=== PATIENT | female | born 1935 | race Caucasian/White ===

== ENCOUNTER 2023-01-25 11:38 | Inpatient (IN) | payer OTHER ==
[~2023-01-25] VITALS: Ht 157.5 cm; Wt 69.4 kg
[2023-01-25 11:56] VITALS: BP_SYST 180
--- NOTE | 2023-01-25 11:59 | NUR ---
Placed in room 5 . Placed on environmental monitoring technician, blood pressure machine and pulse oximeter. To gown for exam. Side rails up. Report given to HEAVENLY MCCLENDON
[2023-01-25] MEDS ORDERED: NACL 0.9% 500 ML IV ONE (12:00)
[2023-01-25] MEDS ORDERED: LABETALOL HCL 20 MG/4 ML CARTRIDGE IVP ONE ×2 (12:00→15:15)
--- NOTE | 2023-01-25 12:12 | NUR ---
PATIENT BIBA FROM HOME WITH AMS, PLACE IN ROOM 5 AWAITING FOR EDP FOR INITIAL ASSESSMENT.
--- NOTE | 2023-01-25 12:30 | NUR ---
PATIENT ASSISTED TO BEDPAN.
[2023-01-25 12:32] LABS: BASOPHILS % (AUTO) 0.3 % (0.0-2.0); EOSINOPHILS % (AUTO) 0.1 % (0.0-4.0); HEMATOCRIT 42.2 % (36-48); HEMOGLOBIN 13.8 g/dL (12.0-16.0); LYMPHOCYTES # (AUTO) 0.7 K/uL (1.0-5.5); LYMPHOCYTES % (AUTO) 6.7 % (20.5-51.5); MEAN CORPUSCULAR HEMOGLOBIN 30 pg (27-31); MEAN CORPUSCULAR HGB CONC 33 % (32-36); MEAN CORPUSCULAR VOLUME 92 fL (79.0-98.0); MONOCYTES # (AUTO) 0.5 K/uL (0.0-1.0); MONOCYTES % (AUTO) 4.8 % (1.7-9.3); NEUTROPHILS # (AUTO) 9.7 K/uL (1.8-7.7); NEUTROPHILS % (AUTO) 88.1 % (40.0-70.0); PLATELET COUNT (AUTO) 227 K/uL (130-430); RED BLOOD CELL COUNT(AUTO) 4.57 MIL/uL (4.2-6.2); RED CELL DISTRIBUTION WIDTH 13.5 % (9.0-15.0)
[2023-01-25 12:40] LABS: ANION GAP 15 (5-15); CHLORIDE 98 mmol/L (98-107); CREATININE 1.22 mg/dL (0.55-1.30); GLUCOSE 197 mg/dL (70-99); UREA NITROGEN, BLOOD 22 mg/dL (8-21)
[2023-01-25 12:45] LABS: ALANINE AMINOTRANSFERASE 31 U/L (12-78); ALBUMIN 3.8 g/dL (3.4-4.8); ASPARTATE AMINOTRANSFERASE 33 U/L (10-37); TOTAL BILIRUBIN 0.3 mg/dL (0.0-1.0)
--- NOTE | 2023-01-25 13:13 | NUR ---
PATIENT TAKEN TO RADIOLOGY.
[2023-01-25 13:59] LABS: BILIRUBIN,URINE NEGATIVE (NEGATIVE); BLOOD, URINE 2+ (NEGATIVE); CLARITY/URINE CLEAR (CLEAR); COLOR,URINE YELLOW (YELLOW); GLUCOSE,URINE 2+ (NEGATIVE); KETONES,URINE NEGATIVE (NEGATIVE); LEUKOCYTE ESTERASE ,URINE NEGATIVE (NEGATIVE); NITRITE, URINE NEGATIVE (NEGATIVE); PROTEIN URINE 3+ (NEGATIVE); UROBILINOGEN,URINE 0.2 (0.2-1.0)
[2023-01-25 14:17] LABS: BACTERIA,URINE RARE /HPF (None Seen); MUCUS,URINE 1+ /LPF (None Seen); RBC,URINE 0-3 /HPF (0-3); WBC,URINE 0-3 /HPF (0-3)
[2023-01-25] MEDS ORDERED: NACL 0.9% 2,000 ML IV ONE (15:15)
[2023-01-25] MEDS ORDERED: cefTRIAXone 1 GM IVPB PREMIX 50 ML IV ONE (15:15)
--- NOTE | 2023-01-25 15:17 | NUR ---
patient remains in bed confuse, on cardiac monitor technician, son at bedside, edp made aware of patient list of meds.
[2023-01-25] MEDS ORDERED: ONDANSETRON HCL 4 MG/2 ML VIAL ONE (16:26)
[2023-01-25] MEDS ORDERED: ONDANSETRON HCL 4 MG/2 ML VIAL IVP ONE (16:45)
--- NOTE | 2023-01-25 16:45 | NUR ---
PATIENT ASSISTED IN BED, SHEET CHANGE.
[2023-01-25] MEDS ORDERED: INSULIN LISPRO SLIDING SCALE 100 UNITS/ML, 3 ML VIAL (humaLOG) SUBCUT PRN (17:30)
[2023-01-25] MEDS ORDERED: VANCOMYCIN HCL 750 MG in NS 250 ML IV ONE (18:00)
--- NOTE | 2023-01-25 19:01 | NUR ---
Admit bed requested Patient will be admitted to care of . Admitted to unit. Diagnosis Inpatient (Yes or No) Observation (Yes or No) Orientation concerns or request close to nursing station (Yes or No) Covid Status On vent or bipap Isolation requirements Needs a sitter From Home (Yes or if No enter name of facility) Requires Dialysis (Yes or No) Med Rec Completed (Yes of No)
--- NOTE | 2023-01-25 19:45 | NUR ---
Attempted to insert F/C. Pt became agitated and combative. Pt's son requested we try again later.
[2023-01-25] MEDS ORDERED: ASPI-1155 PO (20:02)
[2023-01-25] MEDS ORDERED: SIMV-46 PO (20:02)
[2023-01-25] MEDS ORDERED: ATEN50TA PO (20:02)
[2023-01-25] MEDS ORDERED: CLON-433 PO (20:02)
[2023-01-25] MEDS ORDERED: LISI40TA13 PO (20:03)
--- NOTE | 2023-01-25 20:03 | NUR ---
Medication reconciliation completed with information provided by PATIENT'S SON, VALENTIN. Any prior medication reconciliation on file was reviewed and corrected.
--- NOTE | 2023-01-25 20:50 | NUR ---
Admit bed requested Patient will be admitted to care of . Admitted to TELE unit. Diagnosis SEPSIS Inpatient (Yes or No) Y Observation (Yes or No) N Orientation concerns or request close to nursing station (Yes or No) Y Covid Status NEG On vent or bipap N Isolation requirements N Needs a sitter N From Home (Yes or if No enter name of facility) Y Requires Dialysis (Yes or No) N Med Rec Completed (Yes of No) Y
--- NOTE | 2023-01-25 21:58 | NUR ---
Bedside report given to receiving RN. Pt transported via gurney with belongings.
--- NOTE | 2023-01-25 22:00 | NUR ---
ADMISSION NOTE Received patient from ER via gurney. Patient admitted with diagnosis of SEPSIS. Patient is awake, alert, oriented X 0. Patient oriented to hospital room, call light, toileting, pain management and safety-teach back done. Patient informed that their room number is 120A. Personal belongings checked and Belongings List documented. Call light within reach.
[2023-01-25 22:30] VITALS: BP_SYST 169
[2023-01-26] MEDS ORDERED: hydrALAZINE HCL 20 MG/ML VIAL ONE (03:01)
[2023-01-26] MEDS ORDERED: LORazepam 2 MG/ML VIAL IVP PRN (03:15)
[2023-01-26] MEDS ORDERED: ONDANSETRON HCL 4 MG/2 ML VIAL IVP PRN (03:15)
--- NOTE | 2023-01-26 03:23 | NUR ---
DR TAVERA ON-CALL FOR DR TOVAR. GAVE ORDERS FOR ATIVAN PRN, ZOFRAN PRN, HYDRALAZINE PRN, CARDIAC TYRESE , KCL, ACCUCHECK ACHS, DC SCHULER ORDER. SEE ORDER SUMMARY. WILL CONTINUE TO MONITOR.
[2023-01-26] MEDS: hydrALAZINE HCL 20 MG/ML VIAL IVP PRN ×2 (03:32→09:42)
[2023-01-26 04:12] LABS: BASOPHILS % (AUTO) 0.2 % (0.0-2.0); LYMPHOCYTES # (AUTO) 0.8 K/uL (1.0-5.5); LYMPHOCYTES % (AUTO) 7.5 % (20.5-51.5); MEAN CORPUSCULAR HEMOGLOBIN 31 pg (27-31); MEAN CORPUSCULAR HGB CONC 33 % (32-36); MEAN CORPUSCULAR VOLUME 92 fL (79.0-98.0); MONOCYTES # (AUTO) 0.5 K/uL (0.0-1.0); MONOCYTES % (AUTO) 4.8 % (1.7-9.3); NEUTROPHILS # (AUTO) 9.2 K/uL (1.8-7.7); NEUTROPHILS % (AUTO) 87.5 % (40.0-70.0); PLATELET COUNT (AUTO) 188 K/uL (130-430); RED BLOOD CELL COUNT(AUTO) 3.93 MIL/uL (4.2-6.2); WHITE BLOOD COUNT (AUTO) 10.5 K/uL (4.8-10.8)
[2023-01-26 04:41] LABS: ANION GAP 12 (5-15); CHLORIDE 98 mmol/L (98-107); CREATININE 1.25 mg/dL (0.55-1.30); GLUCOSE 170 mg/dL (70-99); UREA NITROGEN, BLOOD 21 mg/dL (8-21)
[2023-01-26] MEDS: POTASSIUM CHLORIDE 20 MEQ TAB.PRT.SR PO ONE (06:10)
[2023-01-26 08:00] VITALS: BP_SYST 185
[2023-01-26] MEDS ORDERED: KCL 40 mEq in 100 mL (PREMIX) 100 ML IV ONE (10:00)
[2023-01-26] MEDS: POTASSIUM CHLORIDE 20 mEq in 100 mL (PREMIX) 100 ML x 2 doses IV SCH ×2 (10:36→13:37)
[2023-01-26 12:08] VITALS: BP_SYST 138
--- NOTE | 2023-01-26 13:53 | NUR ---
CONSULTATION PAGED/CALLED Reason for Consultation: [] [place] Person Who was Notified: [] DWAYNE Consulting Physician: [] DR TAVERA N Amphibian Crewmember Specialty: [] NEPHRO Ordering Physician: [] DR Luke TOVAR Addendum: 01/26/23 at 1354 by Ayana Encarnacion MT/ WRONG PATIENT
--- NOTE | 2023-01-26 13:57 | NUR ---
CONSULTATION PAGED/CALLED Reason for Consultation: [] INFECTION Person Who was Notified: [] AMANDA Consulting Physician: [] DR ARIAS Employee Wellness/Fitness Coordinator Specialty: [] ID Ordering Physician: [] DR TOVAR
[2023-01-26] MEDS: cefTRIAXone 1 GM in D5W 50 ML IV SCH (16:17)
[2023-01-26 16:34] VITALS: BP_SYST 153
[2023-01-26] MEDS: VANCOMYCIN HCL 750 MG in NS 250 ML IV SCH (17:04)
--- NOTE | 2023-01-26 19:48 | NUR ---
Opening note Received SBAR report from HAKAN Tolbert and we visit the patient at bedside. No distress noted and she is on room air. V/S taken and stable. Patient denies pain, does not need to use bed morton, nor is she soiled. IV to RFA is saline locked and patent. Bed is locked in lowest position, side rails up 3x and bed alarm is on.
[2023-01-26 20:00] VITALS: BP_SYST 136
--- NOTE | 2023-01-26 21:20 | NUR ---
water, reposition Patient was offered water and she took a sip, she encouraged and assisted to reposition
[2023-01-27] VITALS: BP_SYST 173
[2023-01-27] MEDS: hydrALAZINE HCL 20 MG/ML VIAL IVP PRN ×3 (00:10→14:37)
--- NOTE | 2023-01-27 00:10 | NUR ---
Apresoline, patient care Administered Apresoline as ordered for SBP of (173 /52, HR 70). Patient was incontinent of bowel and she was provided w/pericare, new pad/linen and assisted to reposition.
--- NOTE | 2023-01-27 04:30 | NUR ---
rounds Patient is resting w/eyes closed, momentarily awakened. She does not have any needs and reports she is good. wctm
[2023-01-27 05:00] VITALS: BP_SYST 163
[2023-01-27 05:15] LABS: BASOPHILS % (AUTO) 0.4 % (0.0-2.0); EOSINOPHILS % (AUTO) 0.4 % (0.0-4.0); HEMATOCRIT 32.1 % (36-48); HEMOGLOBIN 10.9 g/dL (12.0-16.0); LYMPHOCYTES # (AUTO) 1.6 K/uL (1.0-5.5); LYMPHOCYTES % (AUTO) 24.9 % (20.5-51.5); MEAN CORPUSCULAR HEMOGLOBIN 31 pg (27-31); MEAN CORPUSCULAR HGB CONC 34 % (32-36); MEAN CORPUSCULAR VOLUME 91 fL (79.0-98.0); MONOCYTES % (AUTO) 14.8 % (1.7-9.3); NEUTROPHILS # (AUTO) 3.9 K/uL (1.8-7.7); NEUTROPHILS % (AUTO) 59.5 % (40.0-70.0); PLATELET COUNT (AUTO) 149 K/uL (130-430); RED BLOOD CELL COUNT(AUTO) 3.52 MIL/uL (4.2-6.2); RED CELL DISTRIBUTION WIDTH 14.1 % (9.0-15.0); WHITE BLOOD COUNT (AUTO) 6.6 K/uL (4.8-10.8)
[2023-01-27 05:44] LABS: ANION GAP 9 (5-15); CALCIUM 8.8 mg/dL (8.4-11.0); CHLORIDE 105 mmol/L (98-107); CREATININE 1.19 mg/dL (0.55-1.30); GLUCOSE 79 mg/dL (70-99); UREA NITROGEN, BLOOD 31 mg/dL (8-21)
[2023-01-27 08:00] VITALS: BP_SYST 175
[2023-01-27 14:31] VITALS: BP_SYST 162
--- NOTE | 2023-01-27 15:23 | NUR ---
PHYSICAL THERAPY CO-SIGN The Physical Therapy Progress Notes documented by Resident Assistant have been reviewed. Reviewed/Co-Signed by: Doyle Preston Documentation Done by:YASMINE WOLFF Addendum: 01/27/23 at 1524 by Doyle Preston PT Amended: Links added.
[2023-01-27] MEDS: cefTRIAXone 1 GM in D5W 50 ML IV SCH (16:40)
[2023-01-27] MEDS: VANCOMYCIN HCL 750 MG in NS 250 ML IV SCH (16:41)
[2023-01-27] MEDS ORDERED: lisinopriL 20 MG TABLET PO ONE (17:00)
--- NOTE | 2023-01-27 19:25 | NUR ---
OPENING NOTE PT IS SITTING IN BED WITH SON BEDSIDE. NO APPARENT DISTRESS NOTED AT THIS TIME. BED IS IN LOWEST POSITION WITH FALL AND SAFETY PRECAUTIONS IN PLACE. CALL LIGHT WITHIN REACH, PT VERBALIZED HOW TO USE IT. ALL NEEDS MET AT THIS TIME.
[2023-01-27 20:00] VITALS: BP_SYST 175
[2023-01-27] MEDS: cloNIDine HCL 0.1 MG TABLET PO SCH (20:50)
[2023-01-28] VITALS: BP_SYST 152
[2023-01-28 05:41] LABS: BASOPHILS % (AUTO) 0.8 % (0.0-2.0); EOSINOPHILS # (AUTO) 0.1 K/uL (0.0-0.4); HEMATOCRIT 32.6 % (36-48); HEMOGLOBIN 10.9 g/dL (12.0-16.0); LYMPHOCYTES # (AUTO) 0.7 K/uL (1.0-5.5); LYMPHOCYTES % (AUTO) 17.6 % (20.5-51.5); MEAN CORPUSCULAR HEMOGLOBIN 31 pg (27-31); MEAN CORPUSCULAR HGB CONC 34 % (32-36); MEAN CORPUSCULAR VOLUME 92 fL (79.0-98.0); MONOCYTES # (AUTO) 0.6 K/uL (0.0-1.0); NEUTROPHILS # (AUTO) 2.7 K/uL (1.8-7.7); NEUTROPHILS % (AUTO) 65.6 % (40.0-70.0); PLATELET COUNT (AUTO) 132 K/uL (130-430); RED BLOOD CELL COUNT(AUTO) 3.56 MIL/uL (4.2-6.2); RED CELL DISTRIBUTION WIDTH 13.9 % (9.0-15.0); WHITE BLOOD COUNT (AUTO) 4.1 K/uL (4.8-10.8)
[2023-01-28 06:35] LABS: ANION GAP 9 (5-15); CALCIUM 8.3 mg/dL (8.4-11.0); CHLORIDE 105 mmol/L (98-107); CREATININE 1.08 mg/dL (0.55-1.30); GLUCOSE 103 mg/dL (70-99); UREA NITROGEN, BLOOD 27 mg/dL (8-21)
--- NOTE | 2023-01-28 07:00 | NUR ---
CLOSING NOTE PT IS LYING IN BED WITH EYES OPEN. NO APPARENT DISTRESS NOTED. BED IN LOWEST POSITION WITH FALL AND SAFETY PRECAUTIONS IN PLACE. ASSISTED PT TO RESTROOM. CALL LIGHT WITHIN REACH.
[2023-01-28] MEDS: cloNIDine HCL 0.1 MG TABLET PO SCH (08:46)
[2023-01-28] MEDS ORDERED: ATENOLOL 25 MG TABLET(TENORMIN) PO SCH (09:00)
[2023-01-28] MEDS ORDERED: lisinopriL 20 MG TABLET PO SCH (09:00)
[2023-01-28 11:31] VITALS: BP_SYST 117
[2023-01-28] MEDS ORDERED: NIFEdipine 30 MG TAB.ER.24 PO ONE (12:30)
[2023-01-28] MEDS ORDERED: cloNIDine HCL 0.1 MG TABLET PO PRN (12:30)
[2023-01-28] MEDS ORDERED: DOXY100C5 PO (13:03)
[2023-01-28] MEDS ORDERED: PROXL60 PO (13:03)
--- NOTE | 2023-01-28 15:31 | NUR ---
PHYSICAL THERAPY CO-SIGN The Physical Therapy Progress Notes documented by [employer] Laboratory Assistant have been reviewed. Reviewed/Co-Signed by: Tony Major Documentation Done by:YASMINE WOLFF Addendum: 01/28/23 at 1531 by Tony Major PT Amended: Links added.
[2023-01-28 17:01] VITALS: BP_SYST 117
[2023-01-28] MEDS: cefTRIAXone 1 GM in D5W 50 ML IV SCH (17:01)
[2023-01-28 17:14] VITALS: BP_SYST 152
--- NOTE | 2023-01-28 18:10 | NUR ---
D/C Patient Patient given medication reconciliation form and D/C instructions. Exit Care provided. Patient verbalized understanding. MD discussed with patient the results and treatment provided. Ambulatory with steady gait for discharge to home. Patient in stable condition, ID band removed. IV catheter removed, intact and dressing applied, no active bleeding. Rx of new medication ATB given. Patient educated on pain management. All belongings sent with patient.
[2023-01-28] MEDS ORDERED: METOPROLOL SUCCINATE 25 MG TAB.SR.24H (TOPROL XL) PO SCH (21:00)
[2023-01-29] MEDS ORDERED: NIFEdipine 30 MG TAB.ER.24 PO SCH (09:00)
== END 2023-01-28 18:05 | disposition home or self-care (01) | DRG 871 ==
LOC: SED 11:38 → STU 17:40
PROVIDERS: ADMIT Specialist; ATTEND Specialist
DX: A41.9 Sepsis, unspecified organism (principal); G93.41 Metabolic encephalopathy; E87.20 Acidosis, unspecified; N39.0 Urinary tract infection, site not specified; I48.91 Unspecified atrial fibrillation; I10 Essential (primary) hypertension; E78.5 Hyperlipidemia, unspecified; E86.0 Dehydration; F03.90 Unspecified dementia, unspecified severity, without behavioral disturbance, psychotic disturbance, mood disturbance, and anxiety; Z20.822 Contact with and (suspected) exposure to COVID-19; Z79.01 Long term (current) use of anticoagulants
CPT/HCPCS: 36415; 70450-TC; 71045; 74018; 76376; 80048; 80053; 80202; 81000; 83037; 83605; 85025; 85651-TC; 87040; 93005; 97110-GP; 97112-GP; 97116-GP; 97163-GP; 97530-GP; 99291; 99292; G0378; J0360; J0696; J2405; J3480; J7050; J7060